=== PATIENT | male | born 1935 | race Caucasian/White ===

== ENCOUNTER 2017-11-22 16:51 | Emergency (ER) | payer MEDICARE ==
--- NOTE | 2017-11-22 17:27 | EDM.PDOC ---
ED HPI GENERAL MEDICAL PROBLEM - General Chief Complaint: Respiratory Problem Stated Complaint: COUGHING Time Seen by Provider: 11/22/17 17:22 Source of Information: Reports: Patient History Limitations: Reports: No Limitations - History of Present Illness INITIAL COMMENTS - FREE TEXT/NARRATIVE: HISTORY AND PHYSICAL: []81-year-old male presenting with cough History of Present Illness: []Patient and family member relates to him coughing more the last 2 days some production with this History of hypertension and hyperlipidemia Review of Systems: As per history of present illness and below otherwise all systems reviewed and negative. Past medical history: As per history of present illness and as reviewed below otherwise noncontributory. Surgical history: As per history of present illness and as reviewed below otherwise noncontributory. Social history: No reported history of drug or alcohol abuse. Family history: As per history of present illness and as reviewed below otherwise noncontributory. Physical exam: Alert and oriented gentleman who is coughing well in exam room he is on oxygen at this time. answers questions appropriately in full sentences no shortness of breath noted. HEENT: Atraumatic, normocehpalic, pupils reactive, negative for conjunctival pallor or scleral icterus, mucous membranes moist, throat clear, neck supple, nontender, trachea midline. Lungs: Clear to auscultation, breath sounds equal bilaterally, chest non tender. Heart: S1S2, regular, negative for clicks, rubs, or JVD. Abdomen: Soft, nondistended, nontender. Negative for masses or hepatossplenmegaly. Negative for costovertebral tenderness. Pelvis: Stable nontender. Genitourinary: Deferred. Rectal: Deferred Extremities: Atraumatic, negative for cords or calf pain. Neurovascular unremarkable. Neuro: Awake, alert, oriented. Cranial nerves II through XII unremarkable. Cerebellum unremarkable. Motor and sensory unremarkable throughout. Exam nonfocal. Discussed with the son that chest x-ray and CBC were unremarkable. Condition did improve after DuoNeb treatment Diagnostics: [Chest x-ray cbc] Therapeutics: [DuoNeb] Impression: [Upper respiratory infection] Plan: [Discharged to home Albuterol inhaler] Definitive disposition and diagnosis as appropriate pending reevaluation and review of above. - Related Data Allergies Allergy/AdvReac Type Severity Reaction Status Date / Time No Known Allergies Allergy Verified 12/24/17 17:23 Home Meds: Home Meds Acetaminophen [Tylenol] 650 mg PO Q6H PRN 10/21/15 [History] Atenolol 50 mg PO DAILY 10/21/15 [History] Benazepril [Lotensin] 40 mg PO BID 10/21/15 [History] Furosemide [Lasix] 40 mg PO DAILY 10/21/15 [History] Pentoxifylline [TRENtal] 400 mg PO TIDMEALS 10/21/15 [History] Simvastatin [Zocor] 20 mg PO BEDTIME 10/21/15 [History] amLODIPine [Norvasc] 1 tab PO DAILY 10/21/15 [History] Past Medical History - Past Surgical History Other Cardiovascular Surgeries/Procedures: RLE bypass Other Oncologic Surgeries/Procedures: radiation Social & Family History - Tobacco Use Smoking Status *Q: Current Every Day Smoker Years of Tobacco use: 60 Packs/Tins Daily: 0.2 - Recreational Drug Use Recreational Drug Use: No ED ROS GENERAL - Review of Systems Review Of Systems: ROS reveals no pertinent complaints other than HPI. ED EXAM, GENERAL - Physical Exam Exam: See Below (see dictation) Course - Vital Signs Last Recorded V/S: Last Vital Signs Temp 37.1 C 11/22/17 17:06 Pulse 95 11/22/17 17:06 Resp 18 11/22/17 17:06 BP 162/67 H 11/22/17 17:06 Pulse Ox 95 11/22/17 17:06 - Orders/Labs/Meds Orders: Active Orders 24 hr Category Date Time Status RT Aerosol Therapy [RC] ASDIRECTED Care 11/22/17 17:29 Active Chest 2V [CR] Stat Exams 11/22/17 17:26 Taken Labs: Laboratory Tests 11/22/17 Range/Units 17:33 WBC 5.15 (4.0-11.0) K/uL RBC 4.37 L (4.50-5.90) M/uL Hgb 13.5 (13.0-17.0) g/dL Hct 41.0 (38.0-50.0) % MCV 93.8 (80.0-98.0) fL MCH 30.9 (27.0-32.0) pg MCHC 32.9 (31.0-37.0) g/dL RDW Std Deviation 45.2 (28.0-62.0) fl RDW Coeff of Venkat 13 (11.0-15.0) % Plt Count 139 L (150-400) K/uL MPV 10.30 (7.40-12.00) fL Neut % (Auto) 82.9 H (48.0-80.0) % Lymph % (Auto) 8.9 L (16.0-40.0) % [place] % (Auto) 7.8 (0.0-15.0) % Eos % (Auto) 0.2 (0.0-7.0) % Baso % (Auto) 0.2 (0.0-1.5) % Neut # (Auto) 4.3 (1.4-5.7) K/uL Lymph # (Auto) 0.5 L (0.6-2.4) K/uL [place] # (Auto) 0.4 (0.0-0.8) K/uL Eos # (Auto) 0.0 (0.0-0.7) K/uL Baso # (Auto) 0.0 (0.0-0.1) K/uL Nucleated RBC % 0.0 /100WBC Nucleated RBCs # 0 K/uL Meds: Medications Discontinued Medications Generic Name Dose Route Start Last Admin Trade Name Freq PRN Reason Stop Dose Admin Albuterol/Ipratropium 3 ml 11/22/17 17:29 11/22/17 17:37 Duoneb 3.0-0.5 Mg/3 Ml NEB 11/22/17 17:30 3 ml ONETIME ONE Administration Departure - Departure Time of Disposition: 18:47 Disposition: Home, Self-Care 01 Condition: Good Clinical Impression: Acute bronchiolitis Qualifiers: Bronchiolitis organism: unspecified organism Qualified Code(s): J21.9 - Acute bronchiolitis, unspecified - Discharge Information Instructions: Shortness of Breath, [id number] Referrals: PCP,None [Primary Care Provider] - Forms: ED Department Discharge Additional Instructions: The following information is given to patients seen in the emergency department who are being discharged to home. This information is to outline your options for follow-up care. We provide all patients seen in our emergency department with a follow-up referral. The need for follow-up, as well as the timing and circumstances, are variable depending upon the specifics of your emergency department visit. If you don't have a primary care physician on staff, we will provide you with a referral. We always advise you to contact your personal physician following an emergency department visit to inform them of the circumstance of the visit and for follow-up with them and/or the need for any referrals to a consulting specialist. The emergency department will also refer you to a specialist when appropriate. This referral assures that you have the opportunity for followup care with a specialist. All of these measure are taken in an effort to provide you with optimal care, which includes your followup. Under all circumstances we always encourage you to contact your private physician who remains a resource for coordinating your care. When calling for followup care, please make the office aware that this follow-up is from your recent emergency room visit. If for any reason you are refused follow-up, please contact the [facility] emergency department at and asked to speak to the emergency department charge nurse. You were found to have a viral infection Albuterol inhaler has been prescribed for your - My Orders Last 24 Hours: My Active Orders 11/22/17 17:26 Chest 2V [CR] Stat 11/22/17 17:29 RT Aerosol Therapy [RC] ASDIRECTED - Assessment/Plan Last 24 Hours: My Active Orders 11/22/17 17:26 Chest 2V [CR] Stat 11/22/17 17:29 RT Aerosol Therapy [RC] ASDIRECTED
[2017-11-22] MEDS ORDERED: Albuterol/Ipratropium 3.0-0.5 MG/3 ML Neb Soln NEB ONE (17:29)
[2017-11-22] MEDS ORDERED: Acetaminophen 325 MG Tab PO ONE (19:05)
[2017-11-22] MEDS ORDERED: Oseltamivir 75 MG Cap PO ONE (19:48)
[2017-11-22 23:32] VITALS: BP 127/61
--- NOTE | 2017-11-24 15:33 | CR ---
EXAM DATE: 11/22/17 PATIENT'S AGE: 81 Patient: REBECCA BACK Facility: [place], [place] Site . Site : [id number] Study: XRay Chest [id number]/24/2017 5:57:22 PM Ordering Physician: Doctor Morrow Final Report: HISTORY: Pain, shortness of breath and cough. FINDINGS: PA and lateral chest radiograph demonstrates a normal cardiac silhouette. The pulmonary vasculature is free of cephalization. No lobar consolidation is seen. Posterior right costophrenic angle has been excluded from the exam. The left is sharp. There has a costochondral calcification present. Calcification of the anterior longitudinal ligament of the spine. Old posterolateral right 9th rib fracture. IMPRESSION: No acute cardiopulmonary disease or infiltrate. Dictated by Purvi Hernandez MD @ 11/22/2017 6:18:28 PM Dictated by: Purvi Hernandez MD @ 11/22/2017 18:18:35 (Electronic Signature) Report Signed by Proxy. [facility] HOSPITALBrittany
== END 2017-11-22 20:10 | disposition home or self-care (01) ==
LOC: MW.ED 17:19
DX: J21.9 Acute bronchiolitis, unspecified (principal); J06.9 Acute upper respiratory infection, unspecified; I10 Essential (primary) hypertension; E78.5 Hyperlipidemia, unspecified; F17.210 Nicotine dependence, cigarettes, uncomplicated; Z79.899 Other long term (current) drug therapy
CPT/HCPCS: 36415; 71020; 85025; 87804; 94640; 99284; A9270

== ENCOUNTER 2023-07-25 18:17 | Inpatient (IN) | payer MEDICARE ==
[2023-07-25] MEDS ORDERED: Sodium Chloride 0.9% 10 ML Syringe FLUSH PRN (18:37)
[2023-07-25] MEDS ORDERED: Sodium Chloride 0.9% 2.5 ML Syringe FLUSH PRN (18:37)
[2023-07-25 18:52] LABS: BASOPHILS PERCENT AUTO 0.4 % (0.0-1.5); EOSINOPHILS ABSOLUTE AUTO 0.2 K/uL (0.0-0.7); EOSINOPHILS PERCENT AUTO 2.9 % (0.0-7.0); HEMOGLOBIN 10.9 g/dL (13.0-17.0); LYMPHOCYTES ABSOLUTE AUTO 1.1 K/uL (0.6-2.4); LYMPHOCYTES PERCENT AUTO 19.6 % (16.0-40.0); MEAN CORPUSCULAR HEMOGLOBIN 29.5 pg (27.0-32.0); MEAN CORPUSCULAR HGB CONC 32.1 g/dL (31.0-37.0); MEAN CORPUSCULAR VOLUME 91.9 fL (80.0-98.0); MONOCYTES ABSOLUTE AUTO 0.6 K/uL (0.0-0.8); MONOCYTES PERCENT AUTO 11.2 % (0.0-15.0); NEUTROPHILS ABSOLUTE AUTO 3.6 K/uL (1.4-5.7); NEUTROPHILS PERCENT AUTO 65.9 % (48.0-80.0); NRBC ABSOLUTE 0 K/uL; PLATELET COUNT,PLT 247 K/uL (150-400); WHITE BLOOD CELL COUNT,WBC 5.46 K/uL (4.0-11.0)
[2023-07-25 19:02] LABS: INR 1.03 (0.86-1.11)
[2023-07-25] MEDS ORDERED: Morphine 2 MG/ML SYRINGE IVPUSH PRN (21:16)
[2023-07-25] MEDS: LORazepam 2 MG/ML SDV IVPUSH PRN (22:11)
[2023-07-25] MEDS ORDERED: Ondansetron 4 MG/2 ML SDV IVPUSH PRN (23:23)
[2023-07-27] MEDS: LORazepam 2 MG/ML SDV IVPUSH PRN (01:24)
[2023-07-28] MEDS: LORazepam 2 MG/ML SDV IVPUSH PRN (01:43)
[2023-07-28] MEDS ORDERED: Hyoscyamine 0.125 MG Tab.SL SL PRN (08:43)
[2023-07-28] MEDS: Morphine 10 MG/0.5 ML Oral Syringe PO PRN ×2 (09:33→12:51)
[2023-07-28 12:39] VITALS: BP 115/55; PULSE 79
== END 2023-07-28 13:09 | DRG 951 ==
LOC: MW.ED 18:17 → MW.MS 19:36
PROVIDERS: ADMIT Internal Medicine; ATTEND Internal Medicine
DX: Z51.5 Encounter for palliative care (principal); R41.82 Altered mental status, unspecified; I48.91 Unspecified atrial fibrillation; G93.40 Encephalopathy, unspecified; I10 Essential (primary) hypertension; Z68.42 Body mass index [BMI] 45.0-49.9, adult; I95.9 Hypotension, unspecified; D64.9 Anemia, unspecified; Z66 Do not resuscitate; J44.9 Chronic obstructive pulmonary disease, unspecified; N40.0 Benign prostatic hyperplasia without lower urinary tract symptoms; N18.9 Chronic kidney disease, unspecified; I12.9 Hypertensive chronic kidney disease with stage 1 through stage 4 chronic kidney disease, or unspecified chronic kidney disease; I73.9 Peripheral vascular disease, unspecified; I48.0 Paroxysmal atrial fibrillation; R62.7 Adult failure to thrive; Z79.899 Other long term (current) drug therapy; Z86.73 Personal history of transient ischemic attack (TIA), and cerebral infarction without residual deficits; Z98.49 Cataract extraction status, unspecified eye; Z85.46 Personal history of malignant neoplasm of prostate; Z85.09 Personal history of malignant neoplasm of other digestive organs
CPT/HCPCS: 36415; 85025; 85610; 93005; 99285; J3490; 93010; 99284; A9270-GY; J2060; J2270